=== PATIENT | female | born 2000 | race Hispanic/Latino ===

== ENCOUNTER 2021-07-15 13:44 | Emergency (ER) | payer OTHER, SELFPAY ==
[2021-07-15 13:55] VITALS: BP 152/81; PULSE 83; RESP 16; TEMP 36.9; O2SAT 99
--- NOTE | 2021-07-15 14:29 | ED.URI ---
HPI - URI/Sore Throat General Chief Complaint: Upper Respiratory Infection Stated Complaint: fever/vomiting/congestion/sore throat Source: patient and RN notes reviewed Mode of arrival: ambulatory History of Present Illness HPI Narrative: This is a 20-year-old female that presented to our urgent care with complaints of a fever, congestion, sore throat, nausea vomiting diarrhea that started a couple days ago. She did not take anything at home to relieve her symptoms patient has been taking Augmentin at home for ear infection. The patient denies SOB, CP, palpitation, extremity numbness, lightheadedness, dizziness, constipation, diarrhea, chills, or fever. Related Data Home Medications Medication Instructions Recorded Confirmed amoxicillin-pot clavulanate tablet 07/15/21 drospirenone-ethinyl estradiol tablet 07/15/21 [Amee] ergocalciferol (vitamin D2) 07/15/21 famotidine 07/15/21 methylprednisolone 07/15/21 montelukast mg 07/15/21 omeprazole 07/15/21 sumatriptan succinate mg PO 07/15/21 Allergies Allergy/AdvReac Type Severity Reaction Status Date / Time No Known Allergies Allergy Unverified 06/27/17 21:34 Review of Systems Review of Systems: A 14 organ system Review of Systems was performed and pertinent positives included in the HPI, otherwise remaining ROS is negative. [facility] Family History Family History (Updated 07/15/21 @ 14:30 by JOANNE Swenson-C) Other Family history non-contributory Exam Narrative: GENERAL: This is a well-nourished, well-developed patient, in no apparent distress. HEAD: normocephalic, atraumatic. EYES: PERRL. Sclera clear/white. Vision is grossly intact. EARS: External ears normal, auditory canals clear and without drainage, TMs normal without perforation. Hearing grossly intact. NOSE: External nose normal with no obvious nasal discharge, nares without redness, no rhinorrhea. THROAT: Mucous membranes moist, posterior pharynx clear. NECK: Neck supple, non-tender without lymphadenopathy, masses or thyromegaly. CARDIOVASCULAR: Regular rate and rhythm without murmurs, gallops, or rubs. RESPIRATORY: Clear to auscultation. Breath sounds equal bilaterally. No wheezes, rales, or rhonchi. GASTROINTESTINAL: Abdomen soft, non-tender, nondistended. Bowel sounds are active. No hepato-splenomegaly, or palpable masses. No guarding. SKIN: warm, intact with no suspicious lesions or rash, good texture and turgor. NEURO: awake, alert, and oriented to person, place and time. There were no obvious focal neurologic abnormalities. Steady gait EXTREMITIES: Normal range of motion. No edema. No calf tenderness. Negative Homans sign bilaterally. BACK: Nontender without deformity or crepitance. No flank tenderness. Course Course Emergency Course: Patient will be treated for viral infection to relieve symptoms Vital Signs Vital signs: Vital Signs Temperature 98.5 F 07/15/21 13:55 Pulse Rate 83 07/15/21 13:55 Respiratory Rate 16 07/15/21 13:55 Blood Pressure 152/81 H 07/15/21 13:55 Pulse Oximetry 99 07/15/21 13:55 Temperature 98.5 F 07/15/21 13:55 Pulse Rate 83 07/15/21 13:55 Respiratory Rate 16 07/15/21 13:55 Blood Pressure 152/81 H 07/15/21 13:55 Pulse Oximetry 99 07/15/21 13:55 MDM - URI/Sore Throat Differential Diagnosis Differential diagnosis: Likely upper respiratory infection, sinusitis, viral infection, bronchitis, influenza and pharyngitis Lab Data Labs: Lab Results 07/15/21 Range/Units 14:24 POC SARS CoV-2 Ag Negative (Negative) Influenza A Screen Negative Reference Range: Negative Influenza B Screen Negative Reference Range: Negative Discharge Plan Discharge Clinical Impression: Viral infection Patient Disposition: Home, Self-Care Condition: Stable Instructions: Antibiotic Form,
== END 2021-07-15 14:53 | disposition home or self-care (01) ==
PROVIDERS: Emergency Provider Nurse Practitioner
DX: B34.9 Viral infection, unspecified (principal); Z20.822 Contact with and (suspected) exposure to COVID-19
CPT/HCPCS: 87426; 87804; 99213; C9803; G0463

== ENCOUNTER 2021-08-28 10:21 | Outpatient (CLI) | payer OTHER, SELFPAY ==
[2021-08-28 10:37] LABS: Basophils Percent Auto 0.3 % (0.2-1.2); Eosinophils Absolute Auto 0.1 K/mm3 (0-0.3); Eosinophils Percent Auto 2.1 % (0-4.4); Hematocrit 38.7 % (37.0-47.0); Hemoglobin 12.5 g/dL (12.0-15.0); Immature Granulocyte Absolute 0.01 K/mm3 (0.00-0.031); Immature Granulocyte Percent A 0.2 % (0-0.5); Lymphocytes Absolute Auto 2.11 K/mm3 (0.9-3.2); Mean Corpuscular HGB Conc 32.3 g/dl (32-36); Mean Corpuscular Hemoglobin 28.5 pg (26-34); Mean Corpuscular Volume 88.4 fl (80-100); Mean Platelet Volume 9.3 fl (7.4-10.4); Monocytes Absolute Auto 0.3 K/mm3 (0.1-0.6); Neutrophils Percent Auto 60.4 % (45.5-73.1); Platelet Count Result 362 k/mm3 (150-375); Red Blood Count 4.38 M/mm3 (4.2-5.4); Red Cell Distribution Width 13.2 % (11.5-14.5); White Blood Count 6.6 K/mm3 (4.5-10.0)
[2021-08-28 11:04] LABS: Beta HCG Quantitative < 2.39 mIU/ML
== END 2021-08-28 10:22 | disposition home or self-care (01) ==
PROVIDERS: Visit Provider Obstetrics & Gynecology
DX: N91.2 Amenorrhea, unspecified (principal)
CPT/HCPCS: 36415; 84702; 85025; 86850; 86900; 86901

== ENCOUNTER 2021-08-31 02:34 | Emergency (ER) | payer OTHER, SELFPAY ==
[2021-08-31 02:41] VITALS: BP 150/83; PULSE 114; RESP 18; TEMP 36.9; O2SAT 100
--- NOTE | 2021-08-31 02:43 | ED.GENADULT ---
HPI - General Adult General Chief complaint: Nausea/Vomiting/Diarrhea Stated complaint: pot gummies x 3, heavy body, vomit x 1 Time Seen by Provider: 08/31/21 02:36 History of Present Illness HPI narrative: Patient is a 20-year-old female that presents the emergency department with chief complaint of nausea and feeling strange. The patient states that she took 3 marijuana Gummies this evening because she had previously taken to and did not have the desired effect the patient states that she feels strange Related Data Home Medications Medication Instructions Recorded Confirmed drospirenone-ethinyl estradiol tablet 07/15/21 08/28/21 [Amee] ergocalciferol (vitamin D2) 07/15/21 08/28/21 famotidine 07/15/21 08/28/21 omeprazole 07/15/21 08/28/21 sumatriptan succinate mg PO 07/15/21 08/28/21 Allergies Allergy/AdvReac Type Severity Reaction Status Date / Time No Known Allergies Allergy Verified 08/28/21 09:07 [facility] Past Medical History Medical History (Updated 08/31/21 @ 03:47 by Eligio Gomes MD) Anxiety Depression Obesity PCOS (polycystic ovarian syndrome) Surgical History Surgical History History of gynecological procedure (~2015) Nexplanon insertion - Nexplanon removal 2019 Family History Family History Other Family history non-contributory Social History Social History (Updated 08/28/21 @ 09:06 by Leandra Golden MA) Smoking status: Never smoker Alcohol intake: never Substance use: never Substance use type: does not use 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 Gender identity (if verbalized by the patient): Female Sexual Orientation (if Verbalized by the Patient): Straight or Heterosexual Course Vital Signs Vital signs: Vital Signs Temperature 36.9 C 08/31/21 02:41 Pulse Rate 114 H 08/31/21 02:41 Respiratory Rate 18 08/31/21 02:41 Blood Pressure 150/83 H 08/31/21 02:41 Pulse Oximetry 100 08/31/21 02:41 Temperature 36.9 C 08/31/21 02:41 Pulse Rate 117 H 08/31/21 03:33 Respiratory Rate 18 08/31/21 03:33 Blood Pressure 151/82 H 08/31/21 03:33 Pulse Oximetry 98 08/31/21 03:33 Medical Decision Making Vital Signs Vital Signs: Vital Signs Temperature 36.9 C 08/31/21 02:41 Pulse Rate 114 H 08/31/21 02:41 Respiratory Rate 18 08/31/21 02:41 Blood Pressure 150/83 H 08/31/21 02:41 Pulse Oximetry 100 08/31/21 02:41 Temperature 36.9 C 08/31/21 02:41 Pulse Rate 117 H 08/31/21 03:33 Respiratory Rate 18 08/31/21 03:33 Blood Pressure 151/82 H 08/31/21 03:33 Pulse Oximetry 98 08/31/21 03:33 Discharge Plan Discharge Clinical Impression: Marijuana use, Nausea Instructions: Acute Nausea and Vomiting (ED), Cannabis Abuse (ED) Prescriptions: No Action sumatriptan succinate 100 mg tablet PO RF: 0 famotidine 40 mg tablet RF: 0 omeprazole 40 mg capsule,delayed release(DR/EC) RF: 0 ergocalciferol (vitamin D2) 1,250 mcg (50,000 unit) capsule RF: 0 drospirenone-ethinyl estradiol [Amee] 3-0.03 mg tablet RF: 0 ondansetron HCl [Zofran] 4 mg tablet 4 mg PO Q6H PRN (Reason: nausea and vomiting) Qty: 30 RF: 0 loperamide [Imodium A-D] 2 mg capsule 2 mg PO Q6H PRN (Reason: loose stool) Qty: 20 RF: 0 benzonatate 200 mg capsule 200 mg PO TID PRN (Reason: cough) Qty: 30 RF: 0 guaifenesin 400 mg tablet 400 mg PO Q4H PRN (Reason: congestion) Qty: 20 RF: 0 Follow-up/Referrals: Laurel,Christina Currie CHAIRLIFT OPERATOR [Primary Care Provider] -
[2021-08-31] MEDS: ONDANSETRON HCL ODT 4 MG TABLET PO (02:46)
[2021-08-31 03:33] VITALS: BP 151/82; PULSE 117; RESP 18; O2SAT 98
--- NOTE | 2021-08-31 03:33 | PC.NURSE ---
continues to c/o dizziness
[2021-08-31 04:59] VITALS: BP 116/56; PULSE 102; RESP 18
== END 2021-08-31 05:35 | disposition home or self-care (01) ==
PROVIDERS: Emergency Provider Emergency Medicine; PCP Nurse Practitioner Family
DX: F12.90 Cannabis use, unspecified, uncomplicated (principal); R11.0 Nausea; E28.2 Polycystic ovarian syndrome; E66.9 Obesity, unspecified; Z68.42 Body mass index [BMI] 45.0-49.9, adult
CPT/HCPCS: 99283; A9270

== ENCOUNTER 2021-10-20 13:35 | Emergency (ER) | payer OTHER, SELFPAY ==
[2021-10-20 13:57] VITALS: BP 101/89; PULSE 102; RESP 20; TEMP 37; O2SAT 100
--- NOTE | 2021-10-20 13:58 | ED.NAVMDI ---
HPI - Nausea/Vomiting/Diarrhea General Chief complaint: Nausea/Vomiting/Diarrhea Stated complaint: Abdominal Pain Time Seen by Provider: 10/20/21 13:58 Source: patient Mode of arrival: ambulatory Limitations: no limitations History of Present Illness HPI Narrative: 20-year-old female presents with nausea, vomiting, diarrhea, fatigue, body aches since yesterday. Reports that she vomited 45 minutes prior to arrival. Has had 8 episodes of diarrhea since yesterday. Is able to keep down water but is not able to eat. Patient thinks that she has a virus although she states that she had several positive test at home. Denies abdominal pain but states that she does have some abdominal cramping before episodes of diarrhea. No urinary symptoms. Does not know exact date of last menstrual period. All systems reviewed and negative except as noted above. Related Data Home Medications Medication Instructions Recorded Confirmed famotidine 07/15/21 08/28/21 omeprazole 07/15/21 08/28/21 Allergies Allergy/AdvReac Type Severity Reaction Status Date / Time No Known Allergies Allergy Verified 08/28/21 09:07 Review of Systems Review of Systems: CONSTITUTIONAL: Denies fever, chills, or sweats. EYES: Denies visual changes, redness, or discharge. ENT: Denies rhinorrhea, congestion, sore throat, or otalgia. CARDIOVASCULAR: Denies chest pain, palpitations, or edema. RESPIRATORY: Denies cough or dyspnea. GASTROINTESTINAL: Denies abdominal pain. Reports nausea, vomiting, or diarrhea. GENITOURINARY: Denies dysuria or hematuria. SKIN: Denies rash or itching. MUSCULOSKELETAL: Denies back pain, joint pain. Reports myalgia. NEUROLOGIC: Denies headache, numbness, or weakness. PSYCHIATRIC: Denies anxiety or depression. All other systems reviewed are negative, except as documented in HPI. 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 There is no relevant family history pertinent to the presenting complaint. Exam Narrative: GENERAL: This is a well-nourished, well-developed patient. Patient ill-appearing but in no distress. She did vomit while in exam room. HEAD: normocephalic, atraumatic. EYES: PERRL. Sclera clear/white. Vision is grossly intact. EARS: External ears normal, auditory canals clear and without drainage, TMs normal without perforation. Hearing grossly intact. NOSE: External nose normal with no obvious nasal discharge, nares without redness, no rhinorrhea. THROAT: Mucous membranes moist, posterior pharynx clear. NECK: Neck supple, non-tender without lymphadenopathy, masses or thyromegaly. CARDIOVASCULAR: Regular rate and rhythm without murmurs, gallops, or rubs. RESPIRATORY: Clear to auscultation. Breath sounds equal bilaterally. No wheezes, rales, or rhonchi. GASTROINTESTINAL: Abdomen soft, non-tender, nondistended. Bowel sounds are active. No hepato-splenomegaly, or palpable masses. No guarding. SKIN: warm, Dry, intact with no suspicious lesions or rash, good texture and turgor. NEURO: awake, alert, and oriented to person
[2021-10-20] MEDS: ONDANSETRON HCL ODT 4 MG TABLET SUBLINGUAL (14:32)
--- NOTE | 2021-10-20 15:04 | PC.NURSE ---
clear liquid teaching done. pt feels slightly better.
== END 2021-10-20 15:06 | disposition home or self-care (01) ==
PROVIDERS: Emergency Provider Nurse Practitioner Family; PCP Nurse Practitioner Family
DX: A08.4 Viral intestinal infection, unspecified (principal); E28.2 Polycystic ovarian syndrome; E66.9 Obesity, unspecified; Z68.43 Body mass index [BMI] 50.0-59.9, adult
CPT/HCPCS: 81003; 81025; 99213; A9270; G0463

== ENCOUNTER 2021-11-22 13:28 | Emergency (ER) | payer SELFPAY ==
--- NOTE | ~2021-11-22 | XR_ITS ---
EXAMINATION: XR ankle LT min 3V DATE: 11/22/2021 13:46 INDICATION: Lateral left ankle pain. TECHNIQUE: 4 views of left ankle were obtained. COMPARISON: None. FINDINGS: Bone alignment is normal. No fracture. There is mild midfoot osteoarthritis. IMPRESSION: 1. No fracture. Reviewed, dictated and finalized at location A. IMPRESSION: 1. No fracture.
[2021-11-22 13:38] VITALS: BP 127/55; PULSE 99; RESP 16; TEMP 36.8; O2SAT 100
--- NOTE | 2021-11-22 13:47 | ED.LOWEXIN ---
HPI - Extremity Injury (Lower) General Chief Complaint: Extremity Injury, Lower Stated Complaint: Left ankle Pain Time Seen by Provider: 11/22/21 13:48 Source: patient Mode of arrival: ambulatory Limitations: no limitations History of Present Illness HPI Narrative: 20-year-old female presented for complaint of left lateral ankle pain after injury today. She states she was walking down a hill and stepped in a soft spot in the ground causing her to invert left foot and she fell to the ground. She denies any other injuries. She states the pain was more severe at the onset and is much improved at this time. She states her employer requested she get evaluated. She denies numbness, tingling, weakness, or decreased range of motion to the ankle. Related Data Home Medications Medication Instructions Recorded Confirmed famotidine 40 mg PO DAILY 07/15/21 11/22/21 omeprazole 40 mg PO DAILY 07/15/21 11/22/21 Allergies Allergy/AdvReac Type Severity Reaction Status Date / Time No Known Allergies Allergy Verified 11/22/21 13:44 Review of Systems Review of Systems: CONSTITUTIONAL: Denies body aches, fever, chills EYES: Denies visual changes ENT: Denies rhinorrhea, congestion CARDIOVASCULAR: Denies chest pain, palpitations, or edema. RESPIRATORY: Denies cough or dyspnea. GASTROINTESTINAL: Denies abdominal pain, nausea, vomiting, or diarrhea. SKIN: Denies rash, itching, or wounds. MUSCULOSKELETAL: Reports left ankle pain NEUROLOGIC: Denies headache, numbness, tingling, or weakness. PSYCH: Denies depression or anxiety. 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 Please see nursing chart for further information. There is no relevant family history pertinent to the presenting complaint Exam Narrative: GENERAL: Well-appearing, well-nourished, and in no acute distress. HEAD: Normocephalic, atraumatic. EYES: PERRLA, conjunctivae clear NECK: Supple. CHEST: Speaks in full sentences. No respiratory distress. HEART: Regular rate and rhythm. Normal and equal peripheral pulses. EXTREMITIES: LLE and foot has normal strength and sensation, normal range of motion with flexion/extension/rotation, minimal pain with movement. No edema or ecchymosis, No point tenderness. No open wounds, skin tenting, or obvious deformity;skin warm, dry, pink. Capillary refill less than 3 seconds. SKIN: Warm, dry, no rash. NEURO: Alert and oriented x3. PSYCH: Normal mood and affect Course Course Emergency Course: Patient is aware of diagnosis, understands and agrees to treatment plan. Anticipatory guidance given. Patient agrees to follow-up as directed and is aware of reasons to seek care at the emergency department. Portions of this record may have been created with voice recognition software Level of Care: Express Care Visit Vital Signs Vital signs: Vital Signs Temperature 98.2 F 11/22/21 13:38 Pulse Rate
== END 2021-11-22 14:00 | disposition home or self-care (01) ==
PROVIDERS: Emergency Provider Nurse Practitioner Family; PCP Nurse Practitioner Family
DX: M25.572 Pain in left ankle and joints of left foot (principal); E28.2 Polycystic ovarian syndrome; E66.9 Obesity, unspecified
CPT/HCPCS: 73610; 99213; G0463

== ENCOUNTER 2022-01-11 06:30 | Emergency (ER) | payer OTHER, SELFPAY ==
[2022-01-11 06:42] VITALS: BP 130/91; PULSE 93; RESP 16; O2SAT 98
--- NOTE | 2022-01-11 07:19 | PC.NURSE ---
Took report from the shift commander nurse, pt resting, family at bedside.
[2022-01-11 07:25] VITALS: BP 117/62; PULSE 86; RESP 18; O2SAT 98
--- NOTE | 2022-01-11 07:28 | ED.GENADULT ---
HPI - General Adult General Chief complaint: Headache Stated complaint: Migraine Time Seen by Provider: 01/11/22 06:51 History of Present Illness HPI narrative: 21-year-old female presenting to the emergency department for evaluation of a migraine headache. Patient does have a significant history of migraine headaches and has them about once a month. Patient states this headache started yesterday. Patient did take her sumatriptan and Tylenol without significant improvement. Patient reports a frontal headache that does radiate backwards. Patient states this is a similar location to her previous migraines but that it is just more intense in nature. Patient does have associated dizziness and nausea with vomiting. Patient states in route to the emergency department she had worsening nausea and did have emesis in the car. Patient does report nausea with prior migraines. Patient denies any recent fevers. Patient denies any abdominal pain. Patient denies any prior PE or DVT. This dated on 12/25. Patient has had a recent negative urine . Patient denies any suspicion of . Related Data Home Medications Medication Instructions Recorded Confirmed famotidine 40 mg tablet 40 mg PO DAILY 07/15/21 11/22/21 omeprazole 40 mg capsule,delayed 40 mg PO DAILY 07/15/21 11/22/21 release Allergies Allergy/AdvReac Type Severity Reaction Status Date / Time No Known Allergies Allergy Verified 01/11/22 06:40 Review of Systems Review of Systems: CONSTITUTIONAL: Denies fever, chills, or sweats. EYES: Denies visual changes, redness, or discharge. ENT: Denies rhinorrhea, congestion, sore throat, or otalgia. CARDIOVASCULAR: Denies chest pain, palpitations, or edema. RESPIRATORY: Denies cough or dyspnea. GASTROINTESTINAL: See HPI GENITOURINARY: Denies dysuria or hematuria. SKIN: Denies rash or itching. MUSCULOSKELETAL: Denies back pain, joint pain, or myalgia. 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 HEAD: normocephalic, atraumatic. EYES: PERRLA/EOMI, conjunctivae clear. NOSE: Normal no drainage NECK: Supple. No adenopathy, no masses. RESPIRATORY: Airway patent, respirations nonlabored. Clear to auscultation bilaterally, no rales, rhonchi, wheezing. CARDIOVASCULAR: Regular rate and rhythm without murmurs rubs or gallops. ABDOMINAL: Soft, nontender, nondistended, normal bowel sounds MUSCULOSKELETAL: Moves all extremities. Strength/ROM intact, No edema, No calf tenderness. NEURO: Alert. Cranial nerves II through XII intact. No ataxia, discoordination. Normal neuro exam. Grossly intact SKIN: Warm, dry. Normal Color Course Course Emergency Course: Patient did report resolution of her headache. Patient is requesting discharge to home. Patient was educated on reasons to return to the emergency department and was encouraged with close follow-up with her primary care physician. Reevaluation(s) Reevaluation #1: Patient states her headache is significantly improved and is requesting discharge to home. [place]
[2022-01-11] MEDS: diphenhydrAMINE HCl INJ 50 MG/ML VIAL 25 MG IV PUSH (07:59)
[2022-01-11] MEDS: KETOROLAC 15 MG/ML VIAL (*BKC) IV PUSH (07:59)
[2022-01-11] MEDS: PROCHLORPERAZINE EDISYLATE 10 MG/2 ML VIAL IV PUSH (07:59)
[2022-01-11 08:11] VITALS: BP 121/65; PULSE 83; RESP 18; O2SAT 97
[2022-01-11 09:00] VITALS: BP 120/63; PULSE 86; RESP 16; O2SAT 98
== END 2022-01-11 09:00 | disposition home or self-care (01) ==
PROVIDERS: Emergency Provider Emergency Medicine; PCP Nurse Practitioner Family
DX: G43.909 Migraine, unspecified, not intractable, without status migrainosus (principal); F41.9 Anxiety disorder, unspecified; F32.9 Major depressive disorder, single episode, unspecified
CPT/HCPCS: 96374; 96375; 99284; J0780; J1200; J1885

== ENCOUNTER 2022-01-27 15:56 | Emergency (ER) | payer OTHER, SELFPAY ==
[2022-01-27 16:03] VITALS: BP 131/54; PULSE 92; RESP 16; TEMP 37; O2SAT 99
--- NOTE | 2022-01-27 16:14 | ED.ABDPAIN ---
HPI - Abdominal Pain General Chief Complaint: Abdominal Pain Stated Complaint: NAUSEA/ABD PAIN/DIZZINESS Time Seen by Provider: 01/27/22 16:14 Source: patient and RN notes reviewed Mode of arrival: ambulatory Limitations: no limitations History of Present Illness HPI narrative: 21-year-old female presented for complaint of abdominal pain with associated nausea, vomiting, and diarrhea, onset yesterday. She also endorses dizziness prior to vomiting. Endorses a spot of blood in 1 episode of emesis today. Reports persistent diarrhea for few weeks. Currently states the nausea, vomiting is improved at this time. Continues to have slight dizziness. Endorses she is scheduled with a general surgeon for evaluation of cholecystectomy next week. States she has had a scan and an ultrasound and was told it does not work. She admits to having [employer] last night and spaghetti the night before. Related Data Home Medications Medication Instructions Recorded Confirmed famotidine 40 mg tablet 40 mg PO DAILY 07/15/21 11/22/21 omeprazole 40 mg capsule,delayed 40 mg PO DAILY 07/15/21 11/22/21 release albuterol 01/27/22 drospirenone 3 mg-ethinyl tablet 01/27/22 estradiol 0.03 mg tablet montelukast 10 mg tablet tablet 01/27/22 sumatriptan succinate 100 mg tablet tablet PO 01/27/22 Allergies Allergy/AdvReac Type Severity Reaction Status Date / Time No Known Allergies Allergy Verified 01/11/22 06:40 Review of Systems Review of Systems: CONSTITUTIONAL: Denies body aches, fever, chills CARDIOVASCULAR: Denies chest pain, palpitations, or edema. RESPIRATORY: Denies cough or dyspnea. GASTROINTESTINAL: Endorses abdominal pain, nausea, vomiting, diarrhea. GENITOURINARY: Denies dysuria, hematuria, or CVA tenderness. SKIN: Denies rash, itching, or wounds. MUSCULOSKELETAL: Denies back pain, joint pain, or myalgia. NEUROLOGIC: Denies headache, numbness, tingling, or weakness. 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 Please see nursing chart for further information. There is no relevant family history pertinent to the presenting complaint Exam Narrative: GENERAL: Well-appearing, morbidly obese ENT: Mucous membranes pink and moist. CHEST: No respiratory distress. Clear to auscultation. HEART: Regular rate and rhythm. No murmur appreciated. Normal peripheral pulses. ABDOMEN: abd soft, nondistended, Tender abdomen to RUQ, normal active bowel sounds. No guarding, rebound tenderness, asymmetry; EXTREMITIES: Normal range of motion. No edema. SKIN: Warm, dry, no rash. Capillary refill normal. Normal skin turgor. PSYCH: Normal affect. Course Course Emergency Course: Patient is aware of diagnosis, understands and agrees to treatment plan. Anticipatory guidance given. Patient agrees to follow-up as directed and is aware of reasons to seek care at the emergency department. Portions of th
== END 2022-01-27 16:37 | disposition home or self-care (01) ==
PROVIDERS: Emergency Provider Nurse Practitioner Family
DX: R11.2 Nausea with vomiting, unspecified (principal); E66.9 Obesity, unspecified; Z68.42 Body mass index [BMI] 45.0-49.9, adult; E28.2 Polycystic ovarian syndrome
CPT/HCPCS: 99213; G0463

== ENCOUNTER 2022-03-01 10:51 | Emergency (ER) | payer OTHER, SELFPAY ==
--- NOTE | 2022-03-01 10:57 | ED.SKABFB ---
HPI - Skin/Abscess/Foreign Bdy General Chief complaint: Skin/Abscess/Foreign Body Stated complaint: Infection on incision from surgery Time Seen by Provider: 03/01/22 10:57 Source: patient and RN notes reviewed Mode of arrival: ambulatory Limitations: no limitations History of Present Illness HPI narrative: 21-year-old female presents to the [facility] with complaints of redness, inflammation and warmth surrounding her laparoscopic surgical sites. Area around the umbilical site red, warm. 2 lateral sites are pink in color and warm to touch. Patient states she has had laparoscopic gallbladder surgery a week ago, has not tried to call her surgeon at [place]. States that when she had surgery her surgeon told her he would be on vacation this week. Denies any abdominal pain. Denies fevers. No nausea vomiting or diarrhea. Was concerned for the redness, warmth and mild inflammation. Surgical glue intact. States are well approximated Related Data Home Medications Medication Instructions Recorded Confirmed famotidine 40 mg tablet 40 mg PO DAILY 07/15/21 03/01/22 omeprazole 40 mg capsule,delayed 40 mg PO DAILY 07/15/21 03/01/22 release drospirenone 3 mg-ethinyl 1 tablet PO DAILY 01/27/22 03/01/22 estradiol 0.03 mg tablet montelukast 10 mg tablet 1 tablet PO DAILY 01/27/22 03/01/22 ergocalciferol (vitamin D2) 1,250 1,250 mcg PO WEEKLY 03/01/22 03/01/22 mcg (50,000 unit) capsule Allergies Allergy/AdvReac Type Severity Reaction Status Date / Time No Known Allergies Allergy Verified 03/01/22 10:56 Review of Systems Review of Systems: All systems reviewed & are unremarkable except as noted in HPI and below Constitutional: Constitutional: Reports no additional constitutional complaints, Denies chills and Denies fever(s) Eyes: Eyes: Reports no additional eye complaints ENT: Reports system reviewed and no additional complaints, except as documented Cardiovascular: Cardiovascular: Reports no additional cardiovascular complaints Respiratory: Respiratory: Reports no additional respiratory complaints Gastrointestinal: Gastrointestinal: Reports no additional gastrointestinal complaints Musculoskeletal: Musculoskeletal: Reports no additional musculoskeletal complaints Integumentary/Breasts: Skin/Breast: Reports as per HPI and Reports erythema Neurologic: Reports system reviewed and no additional complaints, except as documented Psychiatric: Psychiatric: Reports no additional psychiatric complaints Allergic/Immunologic: Allergic/Immunologic: Reports no additional allergic/immunologic complaints PMFSH Past Medical History Medical History Anxiety Depression Obesity PCOS (polycystic ovarian syndrome) Surgical History Surgical History History of gynecological procedure (~2016) Nexplanon insertion - Nexplanon removal 2019 Hx laparoscopic cholecystectomy Family History Family History Other Family history non-contributory Social History Social History Smoking status: Never smoker Alcohol intake: never Substance use: never Substance use type: does not use 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 There is no relevant family history pertinent to the patient complaint. Exam Const: General: healthy appearing, no acute distress and alert Nutritional Appearance: well nourished Orientation/consciousness: patient oriented x3 Limitations: no limitations HENMT: Head: normal to inspection Ears: external ears nor
[2022-03-01 10:58] VITALS: BP 122/68; PULSE 84; RESP 18; TEMP 36.3; O2SAT 100
== END 2022-03-01 11:10 | disposition home or self-care (01) ==
PROVIDERS: Emergency Provider Nurse Practitioner; PCP Nurse Practitioner Family
DX: T81.40XA Infection following a procedure, unspecified, initial encounter (principal); E66.9 Obesity, unspecified; Z68.42 Body mass index [BMI] 45.0-49.9, adult; E28.2 Polycystic ovarian syndrome
CPT/HCPCS: 99213; G0463